=== PATIENT | female | born 1955 | race Caucasian/White ===

== ENCOUNTER 2018-04-20 12:36 | Emergency (ER) | payer OTHER ==
[~2018-04-20] VITALS: Ht 157.5 cm; Wt 63.5 kg
[~2018-04-20 12:36] MED LIST: ACEBUTCAFT PO; ACET325 PO; ALPR.25 PO; BISA10S PR; BUTASPCAFT PO; CEPH500 PO; CHOL10002 PO; CIPR250 PO; CODACE30 PO; DIVA125EC PO; DIVA250EC; DIVA250EC PO; DIVA500EC PO; DOCU100 PO; EPIN.3I IM; Esgic Tablet1 EACH PO; FIORICET 50-301 EACH; FOLI1; FOLI1 PO; GAVILAX17 GM PO; HYDR1TAB94 PO; Inderal 20 mg T20 MG; LACO50TA2 PO; LAVAP17G PO; LEVE500 PO; LEVFLO250 PO; LEVFLO500 PO; LORA1 PO; Levetiracetam1000 MG PO; Micro-K10 MEQ PO; Milk Of Ma400 MG/5 M PO; Milk Of Ma800 MG/5 M PO; NITR100 PO; ONDA4ODT; ONDA4ODT MM; ONDA4ODT PO; PANT40 PO; POTA10T; POTA20LUD PO; POTCHL10ER PO; POTCHL20ER PO; PRAV20; PROM25; PROM25 PO; PROM25S PO; PROP10 PO; Protonix40 MG PO; Pyridium100 MG; QUET25 PO; SPIR25 PO; SUCR1; Seroquel50 MG PO; TRAM50; TRAZ50 PO; TRAZODONE; Vimpat200 MG; Zofran8 MG PO; [UNRECOGNIZED DRUG - OTHER] PO
[2018-04-20] MEDS ORDERED: TRAZ50 PO (14:00)
[2018-04-20] MEDS ORDERED: Nitrofurantoin50 MG PO (14:04)
[2018-04-20] MEDS ORDERED: ATOR40TA PO (14:05)
[2018-04-20] MEDS ORDERED: ACET325 PO (14:06)
[2018-04-20] MEDS ORDERED: Pyridium100 MG PO (14:08)
[2018-04-20] MEDS ORDERED: SUMA25 PO (14:11)
[2018-04-20] MEDS ORDERED: CAL MAG ZINC +1 EAC1 PO (14:20)
[2018-04-20] MEDS ORDERED: Amoxicillin500 MG PO (16:00)
== END 2018-04-20 16:45 | disposition home or self-care (01) ==
LOC: ER 12:36
DX: S01.511A Laceration without foreign body of lip, initial encounter (principal); S16.1XXA Strain of muscle, fascia and tendon at neck level, initial encounter; S30.0XXA Contusion of lower back and pelvis, initial encounter; S00.83XA Contusion of other part of head, initial encounter; W10.9XXA Fall (on) (from) unspecified stairs and steps, initial encounter; G43.909 Migraine, unspecified, not intractable, without status migrainosus; Z79.899 Other long term (current) drug therapy; Z88.2 Allergy status to sulfonamides; Z88.5 Allergy status to narcotic agent
CPT/HCPCS: 12011; 70450; 72125; 72170; 90471; 90714; 93005; 93010; 96374; 96376; 99284; J3010

== ENCOUNTER → 2018-05-11 | Outpatient (CLI) | payer OTHER ==
[~2018-05-11] MED LIST changes: +ATOR40TA PO; +Amoxicillin500 MG PO; +CAL MAG ZINC +1 EAC1 PO; +Nitrofurantoin50 MG PO; +Pyridium100 MG PO; +SUMA25 PO
[2018-05-11 18:01] LABS: Bilirubin, Urine Neg (Neg); Blood, Urine 1+ (Neg); Glucose Qualitative, Urine Neg (Neg); Ketones, Urine 2+ (Neg); Leukocyte Esterase, Urine 2+ (Neg); Nitrite, Urine Neg (Neg); Protein, Urine Neg (Neg); Specific Gravity, Urine 1.015 (1.003-1.022); Urobilinogen, Urine NORM (Normal); pH, Urine 6.5 (5.0-8.0)
[2018-05-11 18:10] LABS: Appearance, Urine Clear (Clear); Color, Urine Yellow (P-Yellow)
[2018-05-11 18:11] LABS: Bacteria Few /hpf; Squamous Epithelial Cells Few /hpf (Few); White Blood Cells, Urine 25-50 /hpf (0-5)
== END ==
LOC: LAB 17:48 → LAB SHORT 17:48
PROVIDERS: Nurse Practitioner Family
DX: R31.9 Hematuria, unspecified (principal)
CPT/HCPCS: 81001; 87077; 87086; 87186

== ENCOUNTER 2018-06-05 14:25 | Emergency (ER) | payer OTHER ==
[~2018-06-05] VITALS: Ht 157.5 cm; Wt 74.8 kg
[2018-06-05 15:46] LABS: Source, Urine Clean Catch
[2018-06-05 15:51] LABS: BASOPHILS ABSOLUTE AUTO 0.02 K/mm3 (0.00-0.23); BASOPHILS PERCENT AUTO 0 % (0-2); EOSINOPHILS ABSOLUTE AUTO 0.03 K/mm3 (0.00-0.68); EOSINOPHILS PERCENT AUTO 1 % (0-6); Hematocrit 32.7 % (33.0-51.0); Hemoglobin 10.9 g/dL (11.5-16.0); IMMATURE GRAN ABSOLUTE AUTO 0.01 K/mm3 (0.00-0.10); IMMATURE GRAN PERCENT AUTO 0 % (0-1); LYMPHOCYTES ABSOLUTE AUTO 1.46 K/mm3 (0.84-5.20); LYMPHOCYTES PERCENT AUTO 29 % (21-46); MONOCYTES ABSOLUTE AUTO 0.79 K/mm3 (0.16-1.47); MONOCYTES PERCENT AUTO 16 % (4-13); Mean Corpuscular HGB 32.2 pg (26.0-34.0); Mean Corpuscular HGB Conc 33.3 g/dL (31.5-36.5); Mean Corpuscular Volume 97 fL (80-100); Mean Platelet Volume 9.1 fL (9.1-12.4); NEUTROPHILS ABSOLUTE AUTO 2.65 K/mm3 (1.96-9.15); NEUTROPHILS PERCENT AUTO 54 % (41-73); Platelet Count 205 K/mm3 (150-400); RDW Coefficient Variation 13.6 % (11.7-14.2); RDW Standard Deviation 48.9 fL (35.1-46.3); Red Blood Cell Count 3.38 M/mm3 (3.80-5.20); White Blood Cell Count 4.96 K/mm3 (4.00-11.30)
[2018-06-05 15:53] LABS: Bilirubin, Urine Neg (Neg); Blood, Urine 2+ (Neg); Glucose Qualitative, Urine Neg (Neg); Ketones, Urine 3+ (Neg); Leukocyte Esterase, Urine 1+ (Neg); Nitrite, Urine Neg (Neg); Protein, Urine 1+ (Neg); Urobilinogen, Urine NORM (Normal)
[2018-06-05 16:00] LABS: Appearance, Urine Cloudy (Clear); Color, Urine Yellow (P-Yellow)
[2018-06-05 16:01] LABS: Mucus Heavy (0-Heavy)
[2018-06-05 16:03] LABS: Bacteria Rare /hpf; Squamous Epithelial Cells Rare /hpf (Few)
[2018-06-05 16:07] LABS: Alanine Aminotransfer (ALT/SGP 15 U/L (12-78); Albumin, Blood 3.1 g/dL (3.4-5.0); Alk Phos 63 U/L (50-136); Anion Gap 8 mmol/L (6-16); Aspartate Aminotrans (AST/SGOT 14 U/L (12-37); Bilirubin, Total 0.1 mg/dL (0.1-1.0); Blood Urea Nitrogen 32 mg/dL (8-24); Bun/Creatinine Ratio 46.2 (12.0-20.0); CO2, Blood 24 mmol/L (21-32); Calcium, Blood 8.8 mg/dL (8.5-10.1); Chloride, Blood 110 mmol/L (98-108); Creatinine, Blood 0.69 mg/dL (0.40-1.00); Glomerular Filtration Rate >60 (60-); Glucose, Blood 106 mg/dL (70-99); Potassium, Blood 4.3 mmol/L (3.5-5.5); Sodium, Blood 142 mmol/L (136-145); Total Protein, Blood 6.1 g/dL (6.4-8.2)
== END 2018-06-05 16:45 | disposition home or self-care (01) ==
LOC: ER 14:25
PROVIDERS: Emergency Medicine
DX: E86.0 Dehydration (principal); Z79.899 Other long term (current) drug therapy
CPT/HCPCS: 36415; 70450; 71046; 80053; 81001; 85025; 93005; 93010; 99285-25

== ENCOUNTER 2018-07-10 01:44 | Emergency (ER) | payer OTHER ==
[~2018-07-10] VITALS: Ht 162.6 cm; Wt 70.3 kg
== END 2018-07-10 07:51 | disposition home or self-care (01) ==
LOC: ER 01:44
DX: S01.81XA Laceration without foreign body of other part of head, initial encounter (principal); S00.11XA Contusion of right eyelid and periocular area, initial encounter; F03.90 Unspecified dementia, unspecified severity, without behavioral disturbance, psychotic disturbance, mood disturbance, and anxiety; D64.9 Anemia, unspecified; Z88.2 Allergy status to sulfonamides; Z88.5 Allergy status to narcotic agent; Z91.030 Bee allergy status; Z79.899 Other long term (current) drug therapy; W18.30XA Fall on same level, unspecified, initial encounter
CPT/HCPCS: 12011; 70450; 72125; 90714; 99284-25

== ENCOUNTER → 2018-08-15 | Outpatient (CLI) | payer OTHER ==
[~2018-08-15] MED LIST changes: +FOLGARD TABLET1 EACH; +Roxicodone5 MG PO
[2018-08-15 15:20] LABS: Appearance, Urine Clear (Clear); Bilirubin, Urine Neg (Neg); Blood, Urine Neg (Neg); Color, Urine Yellow (P-Yellow); Glucose Qualitative, Urine Neg (Neg); Ketones, Urine 2+ (Neg); Leukocyte Esterase, Urine 2+ (Neg); Nitrite, Urine Neg (Neg); Protein, Urine 2+ (Neg); Urobilinogen, Urine NORM (Normal)
[2018-08-15 15:37] LABS: Squamous Epithelial Cells Few /hpf (Few)
[2018-08-15 15:38] LABS: Bacteria Not Seen /hpf; Red Blood Cells, Urine 0-2 /hpf (0-2); Transitional Epithelial Cells Few /hpf (0-Rare)
== END | disposition home or self-care (01) ==
LOC: LAB 13:15 → LAB SHORT 13:15
PROVIDERS: Nurse Practitioner Family
DX: N39.0 Urinary tract infection, site not specified (principal)
CPT/HCPCS: 81001; 87086

== ENCOUNTER 2019-01-19 19:50 | Emergency (ER) | payer OTHER ==
[~2019-01-19] VITALS: Ht 157.5 cm; Wt 86.2 kg
[2019-01-19 20:28] LABS: BASOPHILS ABSOLUTE AUTO 0.02 K/mm3 (0.00-0.23); BASOPHILS PERCENT AUTO 0 % (0-2); EOSINOPHILS PERCENT AUTO 0 % (0-6); Hematocrit 35.9 % (33.0-51.0); Hemoglobin 11.6 g/dL (11.5-16.0); IMMATURE GRAN ABSOLUTE AUTO 0.02 K/mm3 (0.00-0.10); IMMATURE GRAN PERCENT AUTO 0 % (0-1); LYMPHOCYTES ABSOLUTE AUTO 0.59 K/mm3 (0.84-5.20); LYMPHOCYTES PERCENT AUTO 10 % (21-46); MONOCYTES PERCENT AUTO 19 % (4-13); Mean Corpuscular HGB 31.4 pg (26.0-34.0); Mean Corpuscular HGB Conc 32.3 g/dL (31.5-36.5); Mean Corpuscular Volume 97 fL (80-100); Mean Platelet Volume 9.1 fL (9.1-12.4); NEUTROPHILS ABSOLUTE AUTO 4.17 K/mm3 (1.96-9.15); NEUTROPHILS PERCENT AUTO 71 % (41-73); Platelet Count 206 K/mm3 (150-400); RDW Coefficient Variation 13.4 % (11.7-14.2); RDW Standard Deviation 47.8 fL (35.1-46.3)
[2019-01-19 20:45] LABS: Alanine Aminotransfer (ALT/SGP 16 U/L (12-78); Albumin, Blood 3.3 g/dL (3.4-5.0); Alk Phos 70 U/L (50-136); Anion Gap 6 mmol/L (6-16); Aspartate Aminotrans (AST/SGOT 17 U/L (12-37); Bilirubin, Total 0.2 mg/dL (0.1-1.0); Blood Urea Nitrogen 25 mg/dL (8-24); Bun/Creatinine Ratio 34.3 (12.0-20.0); CO2, Blood 26 mmol/L (21-32); Calcium, Blood 9.1 mg/dL (8.5-10.1); Chloride, Blood 106 mmol/L (98-108); Creatinine, Blood 0.73 mg/dL (0.40-1.00); Globulin, Blood 3.3 g/dL (2.2-4.0); Glomerular Filtration Rate >60 (60-); Glucose, Blood 121 mg/dL (70-99); Potassium, Blood 3.8 mmol/L (3.5-5.5); Sodium, Blood 138 mmol/L (136-145); Total Protein, Blood 6.6 g/dL (6.4-8.2)
[2019-01-19 20:47] LABS: Source, Urine Catheter
[2019-01-19 20:51] LABS: Bilirubin, Urine Neg (Neg); Blood, Urine 2+ (Neg); Glucose Qualitative, Urine Neg (Neg); Ketones, Urine 3+ (Neg); Leukocyte Esterase, Urine 1+ (Neg); Nitrite, Urine Neg (Neg); Protein, Urine 2+ (Neg); Urobilinogen, Urine 1+ (Normal)
[2019-01-19 21:05] LABS: Appearance, Urine Hazy (Clear); Color, Urine Yellow (P-Yellow)
[2019-01-19 21:07] LABS: Amorphous Light (0-Heavy); Bacteria Few /hpf; Mucus Mod (0-Heavy); Red Blood Cells, Urine 0-2 /hpf (0-2); Squamous Epithelial Cells Not Seen /hpf (Few)
[2019-01-19 21:11] LABS: Influenza A Positive (NEGATIVE); Influenza B Negative (NEGATIVE)
[2019-01-19] MEDS ORDERED: CEPH500 PO (21:21)
== END 2019-01-19 23:30 | disposition home or self-care (01) ==
LOC: ER 19:50
PROVIDERS: Emergency Medicine
DX: J10.1 Influenza due to other identified influenza virus with other respiratory manifestations (principal); N39.0 Urinary tract infection, site not specified; F03.90 Unspecified dementia, unspecified severity, without behavioral disturbance, psychotic disturbance, mood disturbance, and anxiety; Z88.2 Allergy status to sulfonamides; Z88.5 Allergy status to narcotic agent; Z91.038 Other insect allergy status; Z79.899 Other long term (current) drug therapy
CPT/HCPCS: 36415; 51701; 71046; 80053; 81001; 85025; 87086; 87804; 96361-59; 96374-59; 99284-25; J0696; J7030

== ENCOUNTER 2019-03-05 11:06 | Emergency (ER) | payer OTHER ==
[~2019-03-05] VITALS: Ht 157.5 cm; Wt 68.0 kg
== END 2019-03-05 14:03 | disposition home or self-care (01) ==
LOC: ER 11:06
DX: M25.552 Pain in left hip (principal); G89.29 Other chronic pain; W05.0XXA Fall from non-moving wheelchair, initial encounter; Z88.2 Allergy status to sulfonamides; Z88.5 Allergy status to narcotic agent; Z91.030 Bee allergy status; Z79.899 Other long term (current) drug therapy; F03.90 Unspecified dementia, unspecified severity, without behavioral disturbance, psychotic disturbance, mood disturbance, and anxiety
CPT/HCPCS: 71045; 73502; 99283-25

== ENCOUNTER → 2019-04-13 | Outpatient (CLI) | payer OTHER | END | disposition home or self-care (01) | LOC: LAB SHORT 13:43 → LAB 13:43 | DX: N39.0 Urinary tract infection, site not specified (principal) | CPT/HCPCS: 87086 ==

== ENCOUNTER 2019-04-25 15:53 | Emergency (ER) | payer OTHER ==
[~2019-04-25] VITALS: Ht 157.5 cm; Wt 54.4 kg
[~2019-04-25 15:53] MED LIST changes: +Keppra750 MG PO
[2019-04-25] MEDS ORDERED: DONE5 PO (18:08)
[2019-04-25] MEDS ORDERED: FURO20 PO (18:10)
[2019-04-25] MEDS ORDERED: MEMA10 PO (18:11)
== END 2019-04-25 20:49 | disposition home or self-care (01) ==
LOC: ER 15:53
DX: M79.89 Other specified soft tissue disorders (principal); F03.90 Unspecified dementia, unspecified severity, without behavioral disturbance, psychotic disturbance, mood disturbance, and anxiety; D64.9 Anemia, unspecified; Z79.899 Other long term (current) drug therapy; Z88.2 Allergy status to sulfonamides; Z91.030 Bee allergy status; Z86.73 Personal history of transient ischemic attack (TIA), and cerebral infarction without residual deficits
CPT/HCPCS: 93971; 99284-25

== ENCOUNTER → 2019-05-15 | Outpatient (CLI) | payer OTHER ==
[~2019-05-15] MED LIST changes: +DONE5 PO; +FURO20 PO; +MEMA10 PO
[2019-05-15 14:22] LABS: Bilirubin, Urine Neg (Neg); Blood, Urine 1+ (Neg); Glucose Qualitative, Urine Neg (Neg); Ketones, Urine Neg (Neg); Leukocyte Esterase, Urine 1+ (Neg); Nitrite, Urine Neg (Neg); Protein, Urine Neg (Neg); Specific Gravity, Urine 1.015 (1.003-1.022); Urobilinogen, Urine NORM (Normal); pH, Urine 6.5 (5.0-8.0)
[2019-05-15 14:48] LABS: Appearance, Urine Clear (Clear); Color, Urine Pale Yellow (P-Yellow)
[2019-05-15 15:15] LABS: Squamous Epithelial Cells Few /hpf (Few)
[2019-05-15 15:17] LABS: Bacteria Few /hpf
== END | disposition home or self-care (01) ==
LOC: LAB SHORT 13:56 → LAB 13:56
PROVIDERS: Family Medicine
DX: N39.0 Urinary tract infection, site not specified (principal)
CPT/HCPCS: 81001; 87086

== ENCOUNTER 2019-09-30 19:33 | Emergency (ER) | payer OTHER ==
[~2019-09-30] VITALS: Ht 154.9 cm; Wt 70.3 kg
[2019-09-30] MEDS ORDERED: CALCITRATE200 MG (19:58)
[2019-09-30] MEDS ORDERED: DIVA500EC PO (19:59)
[2019-09-30] MEDS ORDERED: LACO50TA2 PO (20:01)
[2019-09-30] MEDS ORDERED: BENADRYL25 MG PO (21:21)
== END 2019-09-30 21:50 | disposition home or self-care (01) ==
LOC: ER 19:33
DX: T63.441A Toxic effect of venom of bees, accidental (unintentional), initial encounter (principal); Z86.73 Personal history of transient ischemic attack (TIA), and cerebral infarction without residual deficits; Z87.440 Personal history of urinary (tract) infections; Z88.2 Allergy status to sulfonamides; Z88.5 Allergy status to narcotic agent; Z91.030 Bee allergy status; Z79.899 Other long term (current) drug therapy; Z79.891 Long term (current) use of opiate analgesic
CPT/HCPCS: 93005; 93010; 96374; 96375; 99285-25; J1200; J2405; J2930

== ENCOUNTER → 2020-02-15 | Outpatient (CLI) | payer OTHER ==
[~2020-02-15] MED LIST changes: +BENADRYL25 MG PO; +CALCITRATE200 MG
[2020-02-15 12:33] LABS: Anion Gap 9 mmol/L (6-16); Blood Urea Nitrogen 23 mg/dL (8-24); Bun/Creatinine Ratio 32.2 (12.0-20.0); CO2, Blood 26 mmol/L (21-32); Calcium, Blood 8.6 mg/dL (8.5-10.1); Chloride, Blood 108 mmol/L (98-108); Creatinine, Blood 0.71 mg/dL (0.40-1.00); Glomerular Filtration Rate >60 (60-); Glucose, Blood 109 mg/dL (70-99); Potassium, Blood 3.6 mmol/L (3.5-5.5); Sodium, Blood 143 mmol/L (136-145)
== END | disposition home or self-care (01) ==
LOC: LAB 11:22 → LAB SHORT 11:22
PROVIDERS: Student in an Organized Health Care Education/Training Program
DX: G40.909 Epilepsy, unspecified, not intractable, without status epilepticus (principal)
CPT/HCPCS: 80048

== ENCOUNTER → 2020-04-03 | Outpatient (CLI) | payer OTHER ==
[2020-04-03 11:23] LABS: Bilirubin, Urine Neg (Neg); Blood, Urine Neg (Neg); Glucose Qualitative, Urine Neg (Neg); Ketones, Urine Neg (Neg); Leukocyte Esterase, Urine 3+ (Neg); Nitrite, Urine Neg (Neg); Protein, Urine Neg (Neg); Specific Gravity, Urine 1.015 (1.003-1.022); Urobilinogen, Urine NORM (Normal)
[2020-04-03 12:08] LABS: Appearance, Urine Clear (Clear); Color, Urine Yellow (P-Yellow)
[2020-04-03 12:09] LABS: Bacteria Mod /hpf; Red Blood Cells, Urine 0-2 /hpf (0-2); Squamous Epithelial Cells Few /hpf (Few)
== END | disposition home or self-care (01) ==
LOC: LAB 09:35 → LAB SHORT 09:35
PROVIDERS: Family Medicine
DX: N39.0 Urinary tract infection, site not specified (principal)
CPT/HCPCS: 81001; 87086

== ENCOUNTER → 2020-04-04 | Outpatient (CLI) | payer OTHER ==
[2020-04-04 11:59] LABS: Anion Gap 5 mmol/L (6-16); Blood Urea Nitrogen 21 mg/dL (8-24); Bun/Creatinine Ratio 32.5 (12.0-20.0); CO2, Blood 29 mmol/L (21-32); Calcium, Blood 8.8 mg/dL (8.5-10.1); Chloride, Blood 108 mmol/L (98-108); Creatinine, Blood 0.65 mg/dL (0.40-1.00); Glomerular Filtration Rate >60 (60-); Glucose, Blood 100 mg/dL (70-99); Phosphorus, Blood 3.5 mg/dL (2.5-4.9); Potassium, Blood 3.8 mmol/L (3.5-5.5); Sodium, Blood 142 mmol/L (136-145)
== END | disposition home or self-care (01) ==
LOC: LAB 09:20 → LAB SHORT 09:20
PROVIDERS: Internal Medicine Nephrology
DX: N18.2 Chronic kidney disease, stage 2 (mild) (principal); D63.1 Anemia in chronic kidney disease
CPT/HCPCS: 80069; 85018

== ENCOUNTER → 2020-04-05 | Outpatient (CLI) | payer OTHER ==
[2020-04-05 16:12] LABS: Bilirubin, Urine Neg (Neg); Blood, Urine Neg (Neg); Glucose Qualitative, Urine Neg (Neg); Ketones, Urine Neg (Neg); Leukocyte Esterase, Urine 2+ (Neg); Nitrite, Urine Neg (Neg); Protein, Urine Neg (Neg); Urobilinogen, Urine NORM (Normal)
[2020-04-05 16:18] LABS: Appearance, Urine Clear (Clear); Color, Urine Yellow (P-Yellow)
[2020-04-05 16:20] LABS: Bacteria Mod /hpf; Red Blood Cells, Urine 0-2 /hpf (0-2); Squamous Epithelial Cells Few /hpf (Few)
== END | disposition home or self-care (01) ==
LOC: LAB SHORT 14:05 → LAB 14:05
PROVIDERS: Family Medicine
DX: N39.0 Urinary tract infection, site not specified (principal)
CPT/HCPCS: 81001; 87086

== ENCOUNTER → 2020-04-09 | Outpatient (CLI) | payer OTHER ==
[2020-04-09 13:04] LABS: Source, Urine Clean Catch
[2020-04-09 14:12] LABS: Bilirubin, Urine Neg (Neg); Blood, Urine Neg (Neg); Glucose Qualitative, Urine Neg (Neg); Ketones, Urine Neg (Neg); Leukocyte Esterase, Urine 3+ (Neg); Nitrite, Urine Neg (Neg); Protein, Urine Neg (Neg); Specific Gravity, Urine 1.015 (1.003-1.022); Urobilinogen, Urine NORM (Normal)
[2020-04-09 14:32] LABS: Appearance, Urine Clear (Clear); Bacteria Mod /hpf; Color, Urine Yellow (P-Yellow); Red Blood Cells, Urine 0-2 /hpf (0-2); Squamous Epithelial Cells Few /hpf (Few); Transitional Epithelial Cells Few /hpf (0-Rare)
== END | disposition home or self-care (01) ==
LOC: LAB 13:02 → LAB SHORT 13:02
PROVIDERS: Family Medicine
DX: N39.0 Urinary tract infection, site not specified (principal)
CPT/HCPCS: 81001; 87086

== ENCOUNTER → 2020-08-27 | Outpatient (CLI) | payer OTHER ==
[2020-08-27 19:18] LABS: Source, Urine Clean Catch
[2020-08-27 20:04] LABS: Appearance, Urine Clear (Clear); Bilirubin, Urine Neg (Neg); Blood, Urine Neg (Neg); Color, Urine Yellow (P-Yellow); Glucose Qualitative, Urine Neg (Neg); Ketones, Urine 1+ (Neg); Leukocyte Esterase, Urine 3+ (Neg); Nitrite, Urine Neg (Neg); Protein, Urine Neg (Neg); Specific Gravity, Urine 1.015 (1.003-1.022); Urobilinogen, Urine NORM (Normal); pH, Urine 6.5 (5.0-8.0)
[2020-08-27 20:11] LABS: Bacteria Mod /hpf; Mucus Light (0-Heavy); Red Blood Cells, Urine Not Seen /hpf (0-2); Squamous Epithelial Cells Few /hpf (Few)
== END | disposition home or self-care (01) ==
LOC: LAB 15:17 → LAB SHORT 15:17
PROVIDERS: Nurse Practitioner Family
DX: N39.0 Urinary tract infection, site not specified (principal)
CPT/HCPCS: 81001; 87086

== ENCOUNTER 2020-09-19 10:41 | Emergency (ER) | payer OTHER ==
[~2020-09-19] VITALS: Ht 157.5 cm; Wt 56.2 kg
[2020-09-19] MEDS ORDERED: AMOCLA875 PO (12:12)
== END 2020-09-19 13:03 | disposition home or self-care (01) ==
LOC: ER 10:41
DX: S02.2XXA Fracture of nasal bones, initial encounter for closed fracture (principal); S01.21XA Laceration without foreign body of nose, initial encounter; Z79.899 Other long term (current) drug therapy; W05.0XXA Fall from non-moving wheelchair, initial encounter
CPT/HCPCS: 12011; 36415; 70450; 72125; 99284-25; A9270

== ENCOUNTER 2020-10-07 23:06 | Inpatient (IN) | payer OTHER ==
[~2020-10-07] VITALS: Ht 162.6 cm; Wt 66.8 kg
[~2020-10-07 23:06] MED LIST changes: +AMOCLA875 PO
[2020-10-08 00:21] LABS: PCO2 Arterial 27.8 mmHg (35-45); PO2 Arterial 141 mmHg (80-100); pH Blood Arterial 7.45 (7.35-7.45)
--- NOTE | 2020-10-08 01:29 | NUR ---
6.5 ETT, 24 CM AT TEETH
[2020-10-08] MEDS ORDERED: DIVA250ER PO (01:31)
[2020-10-08] MEDS ORDERED: DOCU100 PO (01:32)
[2020-10-08] MEDS ORDERED: ROWEEPRA PO (01:32)
[2020-10-08] MEDS ORDERED: FURO20 PO (01:32)
[2020-10-08] MEDS ORDERED: MEMA10 PO (01:33)
[2020-10-08] MEDS ORDERED: Vimpat200 MG PO (01:33)
[2020-10-08] MEDS ORDERED: NITROFURANTOIN50 M2 PO (01:33)
[2020-10-08] MEDS ORDERED: DONE5 PO (01:34)
[2020-10-08] MEDS ORDERED: Vitamin D2000 UNIT PO (01:34)
[2020-10-08] MEDS ORDERED: ATORVASTATIN CA40 M1 PO (01:34)
[2020-10-08] MEDS ORDERED: TRAZ50 PO (01:34)
[2020-10-08] MEDS ORDERED: DIVA500ER PO (01:34)
[2020-10-08] MEDS ORDERED: ACETAMINOPHEN PR (01:35)
[2020-10-08] MEDS ORDERED: PANTOPRAZOLE SO40 M2 PO (01:35)
[2020-10-08] MEDS ORDERED: IMITREX50 MG PO (01:36)
[2020-10-08 01:50] LABS: BASOPHILS ABSOLUTE AUTO 0.04 K/mm3 (0.00-0.23); BASOPHILS PERCENT AUTO 0 % (0-2); EOSINOPHILS PERCENT AUTO 0 % (0-6); Hematocrit 45.4 % (33.0-51.0); Hemoglobin 13.7 g/dL (11.5-16.0); IMMATURE GRAN ABSOLUTE AUTO 0.11 K/mm3 (0.00-0.10); IMMATURE GRAN PERCENT AUTO 1 % (0-1); LYMPHOCYTES ABSOLUTE AUTO 2.52 K/mm3 (0.84-5.20); LYMPHOCYTES PERCENT AUTO 20 % (21-46); MONOCYTES ABSOLUTE AUTO 1.75 K/mm3 (0.16-1.47); MONOCYTES PERCENT AUTO 14 % (4-13); Mean Corpuscular HGB 30.9 pg (26.0-34.0); Mean Corpuscular HGB Conc 30.2 g/dL (31.5-36.5); Mean Corpuscular Volume 103 fL (80-100); Mean Platelet Volume 9.8 fL (9.1-12.4); NEUTROPHILS ABSOLUTE AUTO 8.39 K/mm3 (1.96-9.15); NEUTROPHILS PERCENT AUTO 65 % (41-73); NRBC ABSOLUTE 0.13 K/mm3 (0.00-0.02); Platelet Count 279 K/mm3 (150-400); RDW Standard Deviation 53.3 fL (35.1-46.3); Red Blood Cell Count 4.43 M/mm3 (3.80-5.20); White Blood Cell Count 12.81 K/mm3 (4.00-11.30)
[2020-10-08 02:03] LABS: Alanine Aminotransfer (ALT/SGP 31 U/L (12-78); Albumin, Blood 2.4 g/dL (3.4-5.0); Albumin/Globulin Ratio 0.6 (0.8-1.8); Alk Phos 67 U/L (50-136); Anion Gap 8 mmol/L (6-16); Aspartate Aminotrans (AST/SGOT 139 U/L (12-37); Bilirubin, Total 0.5 mg/dL (0.1-1.0); Blood Urea Nitrogen 41 mg/dL (8-24); Bun/Creatinine Ratio 46.5 (12.0-20.0); CO2, Blood 26 mmol/L (21-32); Chloride, Blood 120 mmol/L (98-108); Creatinine, Blood 0.88 mg/dL (0.40-1.00); Globulin, Blood 3.8 g/dL (2.2-4.0); Glomerular Filtration Rate >60 (60-); Glucose, Blood 129 mg/dL (70-99); Potassium, Blood 3.6 mmol/L (3.5-5.5); Sodium, Blood 154 mmol/L (136-145); Total Protein, Blood 6.2 g/dL (6.4-8.2)
[2020-10-08 02:08] LABS: Source, Urine Catheter
[2020-10-08 02:18] LABS: Bilirubin, Urine Neg (Neg); Blood, Urine 2+ (Neg); Glucose Qualitative, Urine Neg (Neg); Ketones, Urine 2+ (Neg); Leukocyte Esterase, Urine Neg (Neg); Nitrite, Urine Neg (Neg); Protein, Urine 1+ (Neg); Urobilinogen, Urine NORM (Normal)
[2020-10-08 02:20] LABS: Appearance, Urine Clear (Clear); Color, Urine Yellow (P-Yellow)
[2020-10-08 02:27] LABS: Bacteria Few /hpf; Hyaline Casts 0-2 /lpf (0-2); Squamous Epithelial Cells Not Seen /hpf (Few)
[2020-10-08 02:55] LABS: Influenza A, PCR Negative (NEGATIVE); Influenza B, PCR Negative (NEGATIVE); Resp Syncytial Virus, PCR Negative (NEGATIVE); SARS-Cov-2 (COVID-19) PCR, MMC Positive (NEGATIVE)
[2020-10-08 05:02] LABS: pH Blood Arterial 7.51 (7.35-7.45)
[2020-10-08 05:03] LABS: PCO2 Arterial 22.7 mmHg (35-45); PO2 Arterial 79.5 mmHg (80-100)
--- NOTE | 2020-10-08 05:17 | NUR ---
HYPOTENSION/TACHYCARDIA PT STARTED ON LEVOPHED DUE TO HYPOTENSION SBP IN THE 60'S, THAN HAD TO GIVE PT LOPRESSOR FOR HEART RATE 150-170'S. PT CAME DOWN TO 90'S ON HEART RATE AFTER 5 MG LOPRESSOR BUT CONT TO HAVE NO SUSTAINED RUNS UP TO 120'S. BP ON LEVOPHED AT 4 MCQ 101/54 MAP 73
--- NOTE | 2020-10-08 06:26 | NUR ---
ADMIT/SHIFT SUMMARY PT ADMITTED TO ICU 09 VIA ER AT 0315. PT ARRIVED VIA GURNEY WITH RN AND RT. PT TRANSFERED TO BED BY STAFF WITH SLIDER SHEET. PT INTUBATED AND ON MECH VENT. VENT SETTINGS AC 18 TV 400 PEEP 5 FIO2 35%. LUNGS COARSE AND DECREASED. RT SUCTIONING RED SECRECTIONS VIA ET TUBE. HEART RATE IRREGULAR 90-170. CALLED AND SPOKE WITH DR LAURENT AT 0354 REGARDING HEART RATE 90-170 NON SUSTAINING. OBTAINED ORDER FOR LOPRESSOR. PT WITH CENTRAL LINE TO RIGHT IJ, DRSG INTACT, SITE CLEAR. IV 20G TO LEFT AC SALINE LOCKED. TREADWELL CATH PATENT DRAINING YELLOW URINE. OG TO LIS. [address] LAURENT REGARDING CONT HEART RATE 90-170 NON SUSTAINING AND HYPOTENSION. RECEIVED ORDER FOR D5 1/2 AT 75 ML/HR AND LEVOPHED. 0504 STARTED LEVOPHED AT 4 MCQQ/MIN FOR SBP IN THE 60'S. 0512 HEART RATE UP TO 170'S AND SUSTAINING, TALKED WITH KHARI CHARGE NURSE. PT MED WITH LOPRESSOR. HEART RATE DOWN TO 90. CALL OUT TO DR LAURENT [address] LAURENT FOR AMIODARONE BOLUS AND GTT. 0600 AMIODARONE BOLUS COMPLETE AND GTT STARTED AT 1 MG/MIN PT RESTING QUIELTY AT THIS TIME. REPORT TO ON COMING NURSE
--- NOTE | 2020-10-08 07:57 | NUR ---
Received report from Rebekah BERGER. Patient intubated and sedated in bed with HOB at 30 degrees. She has 6.5 ET 25cm at lips with settingsAC 18, TV 400, FiO2 30% and PEEP 5.0 and sats 97%.Patient has RIJ in place dressing intact and site WNL's and has Amiodarone at 1 mg/hr, D5 1/2 NS at 75ml/hr, x2 NS TKO, Levophed at 4 mcg/min, and Propofol at 15 mcg/kg/min. Patient has OG that is clamped. She has 16 Fr Temp Powell draining to gravity small amount yellow urine. During oral care patient opened eyes and mouth and minimal withdrawl. She also has 20ga IV to LAC, flushed and SL'd.
--- NOTE | 2020-10-08 10:00 | NUR ---
Dr Riggs in room assessing patient. All meds currently IV through CL. Dr Riggs reduced Levophed to 2 mcg/min. No other vent or gtt changes.
--- NOTE | 2020-10-08 11:51 | NUR ---
Dr Riggs ordered TF Pivot 1.5 goal rate 35 and water flushes Q4 30ml/hr. No changes with vent or gtt settings. Oral care and repositioning done. Levophed remains at 2 mcg/min with systolic 90-100's.
--- NOTE | 2020-10-08 13:45 | NUR ---
Placed Levophed on standby and systolics 90 and MAP's >65. No vent setting changes. Daughter called again and gave update. No neuro changes and responds to painful and loud verbal stimuli.
--- NOTE | 2020-10-08 15:30 | NUR ---
Vent setting changes ordered by Dr Riggs, AC 15m TV 350, FiO2 30, PEEP 5, sats 95%. TF started earlier and no residual as of yet. Levophed back at 2 mcg/min started at 1345 and Amiodarone at 0.5mg/hr at 1245, no other changes.
--- NOTE | 2020-10-08 18:00 | NUR ---
Patient is intubated and sedated. patient has 6.5ET and 25 cm at lips with vents settings AC 15, TV 350, FiO2 30% and PEEP 5.0 and sats 96%. She has OG with Pivot 1.5 infusing at 25 ml/hr and goal of 35ml/hr with 30 ml water flushes Q4. Has cental line RIJ infusing Levophed at 3 mcg/min, Propofol at 15 mcg/kg/min, D5 1/2 NS at 75 ml/hr, NS TKO x2, Amiodarone at 0.5 mg/hr and 18 hrs will be 10/09 0645. Patien has 16 Fr temp Powell draing 500 ml leida colored urine and temp of 97.4. Plan to wean in am and possible extubation.
--- NOTE | 2020-10-08 18:08 | NUR ---
Per admit trigger, I provided prayer for pt. She is currently vented, sedated, and Covid+. No family present. I will remain available.
--- NOTE | 2020-10-08 19:00 | NUR ---
ASSUMED CARE ASSUMED CARE OF PATIENT. REMAINS INTUBATED- AC 15, TV 350, PEEP 5, FIO2 30%. SEDATED WITH PROPOFOL AT 15MCG/KG/MIN. BILATERAL SOFT WRIST RESTRAINTS IN PLACE. LEVOPHED INFUSING @ 3MCG/MIN TO MAINTAIN MAP >65. OG WITH PIVOT 1.5 AT 25CC/HR. TREADWELL PATENT AND DRAINING. AMIODARONE INFUSING AT 0.5MG/MIN. D5 1/2 NS INFUSING AT 75CC/HR PER ORDER. REMAINS IN AIRBORNE/DROPLET ISOLATION FOR COVID. SCATTERED BRUISING NOTED. SEE SHIFT ASSESSMENT FOR FULL ASSESSMENT.
--- NOTE | 2020-10-09 | NUR ---
HYPERGLYCEMIA [facility]- CALL TO DR. BECERRIL AT THIS TIME AND NEW ORDER RECEIVED FOR S/S INSULIN.
[2020-10-09 04:35] LABS: BASOPHILS ABSOLUTE AUTO 0.06 K/mm3 (0.00-0.23); BASOPHILS PERCENT AUTO 1 % (0-2); EOSINOPHILS PERCENT AUTO 0 % (0-6); Hematocrit 39.4 % (33.0-51.0); Hemoglobin 12.3 g/dL (11.5-16.0); IMMATURE GRAN ABSOLUTE AUTO 0.27 K/mm3 (0.00-0.10); IMMATURE GRAN PERCENT AUTO 2 % (0-1); LYMPHOCYTES ABSOLUTE AUTO 1.08 K/mm3 (0.84-5.20); LYMPHOCYTES PERCENT AUTO 9 % (21-46); MONOCYTES ABSOLUTE AUTO 1.46 K/mm3 (0.16-1.47); MONOCYTES PERCENT AUTO 12 % (4-13); Mean Corpuscular HGB 31.1 pg (26.0-34.0); Mean Corpuscular HGB Conc 31.2 g/dL (31.5-36.5); Mean Corpuscular Volume 100 fL (80-100); Mean Platelet Volume 9.4 fL (9.1-12.4); NEUTROPHILS ABSOLUTE AUTO 9.38 K/mm3 (1.96-9.15); NEUTROPHILS PERCENT AUTO 77 % (41-73); NRBC ABSOLUTE 0.12 K/mm3 (0.00-0.02); Platelet Count 295 K/mm3 (150-400); RDW Coefficient Variation 13.8 % (11.7-14.2); RDW Standard Deviation 51.7 fL (35.1-46.3); Red Blood Cell Count 3.95 M/mm3 (3.80-5.20); White Blood Cell Count 12.25 K/mm3 (4.00-11.30)
--- NOTE | 2020-10-09 04:55 | NUR ---
SBT PROPOFOL TITRATED OFF FOR SBT. RT AT BEDSIDE.
[2020-10-09 05:01] LABS: Magnesium, Blood 2.2 mg/dL (1.6-2.4)
[2020-10-09 05:07] LABS: Anion Gap 9 mmol/L (6-16); Blood Urea Nitrogen 32 mg/dL (8-24); Bun/Creatinine Ratio 40.5 (12.0-20.0); CO2, Blood 22 mmol/L (21-32); Chloride, Blood 118 mmol/L (98-108); Creatinine, Blood 0.79 mg/dL (0.40-1.00); Glomerular Filtration Rate >60 (60-); Glucose, Blood 313 mg/dL (70-99); Potassium, Blood 2.1 mmol/L (3.5-5.5); Sodium, Blood 149 mmol/L (136-145)
--- NOTE | 2020-10-09 05:25 | NUR ---
SEDATION SBT COMPLETE- SEE RT DOCUMENTATION. PROPOFOL RESTARTED AT 20MCG/KG/MIN AT THIS TIME. PT OPENED EYES AND SQUEEZED HANDS TO COMMAND. NOT FOLLOWLING ANY OTHER COMMANDS.
[2020-10-09 05:32] LABS: PCO2 Arterial 27.3 mmHg (35-45); PO2 Arterial 87.1 mmHg (80-100); pH Blood Arterial 7.43 (7.35-7.45)
--- NOTE | 2020-10-09 06:29 | NUR ---
SHIFT SUMMARY NO ACUTE CHANGES. REMAINS INTUBATED- AC 15, TV 350, PEEP 5, FIO2 30%. RR 17-25. SX SCANT AMOUNT OF URBINA SPUTUM WITH SOME BLOOD NOTED. BILATERAL SOFT WRIST RESTRAINTS REMAIN IN PLACE. PT OPENED EYES AND SQUEEZED HANDS TO COMMAND WHEN SEDATION DECREASED, BUT NOT FOLLOWING ANY OTHER COMMANDS. LEVOPHED BETWEEN 3-5MCG/MIN DURING SHIFT TO KEEP MAP >65- NOW INFUSING AT 5MCG/MIN. PIVOT 1.5 IMMUNE INFUSING AT GOAL RATE OF 35CC/HR. OG RESIDUAL <10CC. 30CC H20 FLUSH Q4H. TREADWELL PATENT AND WITH GOOD URINE OUTPUT. CBG INCREASED DURING NOC- NEW ORDER FOR S/S INSULIN COVERAGE. D5 1/2 NS OFF THIS AM D/T HYPERGLYCEMIA. KPHOS 30MMOL INFUSING PER ORDER. AMIODARONE CONTINUES @ 0.5MCG/MIN. WILL REPORT TO ONCOMING RN WHEN AVAILABLE.
--- NOTE | 2020-10-09 08:00 | NUR ---
Received report from Georgia BERGER. Patient remains intubated and sedated. She has 6.5 ET and 25 cm at lips with vent setting of AC 15, TV 350, FiO2 30% and PEEP 5.0 and sats 97%.She has RIJ dressing intact and site WNl's and is infusing: Levophed 5 mcg/miin, Amiodarone off per Dr Riggs, NS TKO x2, K phos at 43ml/hr, Propofol 20 mcg/kg/min. She has OG in place with Pivot 1.5 at goal rate 35 ml/hr and 30 ml water flushes Q4. She has 16Fr temp lopez draining to gravity light leida colored urine and uis afebrile. Patient responds to nocious stimuli and positioning. Possibly extubation today after weaning.
--- NOTE | 2020-10-09 10:00 | NUR ---
Dr Riggs by to see patient and plan to extubate. He talked with daughter and patient will go back to her DNR post extubation. Stopped Propofol and tube feedings and flushed lines. VSS, See EMR. Levohed reduced to 3mcg/min and systolic 90's with MAP's >65.
--- NOTE | 2020-10-09 11:40 | NUR ---
Patient extubated and place on 4L O2 via NC and sats mid 90%'s She was able to follow simple commands like squeezing hands prior. Levophed remains at 3 mcg/min. TF stopped and removed prior as well.
--- NOTE | 2020-10-09 13:30 | NUR ---
Patient has been resting. Palliative care set up skype appt with daughter. I set up IPAD on table in front of patient and daughter was able to talk with her for about an hour. VSS, See EMR. Patient remains on 3 mcg/min of Levophed for MAP's >65 and 2l O2 via NC and sats >93%. She remains non verbal and follows simple commands quickly.
[2020-10-09 13:39] LABS: Phosphorus, Blood 3.4 mg/dL (2.5-4.9); Potassium, Blood 2.9 mmol/L (3.5-5.5)
--- NOTE | 2020-10-09 15:01 | NUR ---
Patient has liquid saleem stool and changes linen and gave partial bath. She is on RA and sats90% and >. No other significant chnages.
--- NOTE | 2020-10-09 17:51 | NUR ---
Changed lined after cleaning patient with small amount of brown liquid stool. She has intermitently yelling for help and when entering room and speaking to her she stops until you leave the room. She does not really track and stares outward even when turning her head. She is currently on RA and sats 89-92%. Medicated with fentanyl earlier for stated chest pain. VSS, See EMR. Gave Dr Riggs update and no further needs. He Levophed continues at 2 mcg/min through RIJ and x2 NS TKO.
--- NOTE | 2020-10-09 19:00 | NUR ---
ASSUMED CARE ASSUMED CARE OF PATIENT. AWAKE AND ALERT. FREQUENTLY YELLING OUT "HELP ME" BUT ISN'T ABLE TO COMMUNICATE HER NEEDS BEYOND THAT. FOLLOWS SIMPLE COMMANDS. MOVES ALL EXTREMITIES WEAKLY. APPEARS FEARFUL. OCCASIONALLY TEARY. MONITOR SHOWS NSR, RATE 80-90s. BP STABLE WITH LEVOPHED AT 2MCG/MIN. AFEBRILE. MILD TREMULOUSNESS NOTED. NPO. TREADWELL PATENT AND DRAINING CLEAR YELLOW URINE. RIJ CENTRAL LINE NOTED, DRSG C/D/I. SEE SHIFT ASSESSMENT FOR FULL ASSESSMENT.
[2020-10-10 03:57] LABS: BASOPHILS ABSOLUTE AUTO 0.04 K/mm3 (0.00-0.23); BASOPHILS PERCENT AUTO 0 % (0-2); EOSINOPHILS PERCENT AUTO 0 % (0-6); Hematocrit 36.3 % (33.0-51.0); Hemoglobin 11.9 g/dL (11.5-16.0); IMMATURE GRAN ABSOLUTE AUTO 0.35 K/mm3 (0.00-0.10); IMMATURE GRAN PERCENT AUTO 3 % (0-1); LYMPHOCYTES ABSOLUTE AUTO 2.13 K/mm3 (0.84-5.20); LYMPHOCYTES PERCENT AUTO 17 % (21-46); MONOCYTES ABSOLUTE AUTO 1.44 K/mm3 (0.16-1.47); MONOCYTES PERCENT AUTO 11 % (4-13); Mean Corpuscular HGB 31.5 pg (26.0-34.0); Mean Corpuscular HGB Conc 32.8 g/dL (31.5-36.5); Mean Corpuscular Volume 96 fL (80-100); Mean Platelet Volume 9.7 fL (9.1-12.4); NEUTROPHILS ABSOLUTE AUTO 8.71 K/mm3 (1.96-9.15); NEUTROPHILS PERCENT AUTO 69 % (41-73); NRBC Auto 0.8 /100 WBC (0.0-0.2); Platelet Count 249 K/mm3 (150-400); RDW Coefficient Variation 13.7 % (11.7-14.2); RDW Standard Deviation 48.7 fL (35.1-46.3); Red Blood Cell Count 3.78 M/mm3 (3.80-5.20); White Blood Cell Count 12.67 K/mm3 (4.00-11.30)
[2020-10-10 04:12] LABS: Anion Gap 7 mmol/L (6-16); Blood Urea Nitrogen 32 mg/dL (8-24); Bun/Creatinine Ratio 42.3 (12.0-20.0); CO2, Blood 25 mmol/L (21-32); Calcium, Blood 8.3 mg/dL (8.5-10.1); Chloride, Blood 117 mmol/L (98-108); Creatinine, Blood 0.76 mg/dL (0.40-1.00); Glomerular Filtration Rate >60 (60-); Glucose, Blood 99 mg/dL (70-99); Magnesium, Blood 1.8 mg/dL (1.6-2.4); Phosphorus, Blood 3.1 mg/dL (2.5-4.9); Sodium, Blood 149 mmol/L (136-145)
--- NOTE | 2020-10-10 06:38 | NUR ---
SHIFT SUMMARY NO ACUTE CHANGES. REMAINS ON RA WITH SATS >90%. RESPIRATIONS OCCASIONALLY TACHYPNEIC WITH AGITATION. PT CONTINUES TO BE TEARFUL AND APPEARS FEARFUL AT TIMES. NEW ONSET OF MOIST COUGH THIS AM PRODUCTIVE OF THICK URBINA SPUTUM. PT HAS DIFFICULTY BRINGING SPUTUM UP. LEVOPHED CONTINUED AT 2MCG/MIN T/O SHIFT TO MAINTAIN MAP >65. NPO. TREADWELL PATENT AND DRAINING WITHOUT DIFFICULTY. PAS TO BLE. KCL AND MAGNESIUM IV REPLACEMENT PER ELECTROLYTE PROTOCOL. WILL REPORT TO ONCOMING RN WHEN AVAILABLE.
--- NOTE | 2020-10-10 07:05 | NUR ---
ASSUMED CARE: RECEIVED REPORT FROM NOC RN. PT IN ISOLATION FOR BEING COVID-19 POSITIVE SO REPORT WAS DONE OUTSIDE OF ROOM. PT APPEARS TO HAVE FACIAL BRUISING AND LOOKS AT THIS RN UPON LOOKING IN THE ROOM, PT DID NOT WAVE BACK TO RN AND APPEARS FEARFULL. NOC RN STATES PT HAS APPEARED THIS WAY DURING THE ENTIRE NOC SHIFT. PT VITALS APPERA STABLE AT THIS TIME. WILL REASSESS NEED FOR LEVOPHED DURING PT ASSESSMENT. NO ACUTE S/S OF DISTRESS AT THIS TIME. WILL CONTINUE TO MONIOTR AND ASSESS FURTHER.
[2020-10-10] MEDS ORDERED: CALCIUM 600 +1 EA11 PO (08:09)
[2020-10-10] MEDS ORDERED: CRANBERRY500 MG PO (08:10)
--- NOTE | 2020-10-10 12:08 | NUR ---
DAUGHTER: TALKED TO THE DAUGHTER TONI AND GAVE UPDATE. DISCUSSED THE POLST ON FILE STATING LIMITED TREATMENT AND DAUGHTER WAS STATING WHEN SHE WAS TALKING TO THE PT TELLING HER IT IS OK FOR HER TO JUST GO TO SLEEP AND BE WITH HER GRANDMA WHO PREVIOUSLY. ASKED THE DAUGHTER IF SHE WANTS TO CHANGE THE POLST TO COMFORT MEASURES ONLY WITH THIS NEW INFORMATION STATED. DAUGHTER STATES SHE WOULD LIKE TO CHANGE HER TO COMFORT MEASURES ONLY. THIS RN ATTEMPTED TO CONTACT [facility], BUT [facility]ARE IS NOT ON TODAY. TOLD THE DAUGHTER THIS RN WOULD HAVE EITHER PALAT[facility]ARE RN AND/OR ONE OF THE PATIENTS DOCTORS CONTACT HER TO GO OVER ALL THE DETAILS TO INSURE COMFORT CARE IS FULLY UNDERSTOOD BEFORE MAKING THAT CHANGE. THIS RN CALLED AND NOTIFIED DR CAGE OF THE SITUATION.
--- NOTE | 2020-10-10 13:30 | NUR ---
COMFORT CARE: DR CAGE CAME TO ASSESS PT FURTHER TO PANCHITO PT IS UNABLE TO MAKE DECISIONS FOR HERSELF. DR CAGE CALLED AND TALKED TO THE DAUGHTER AND ALL CAME TO THE DECISION TO PLACE PT ON COMFORT CARE. NEW ORDERS HAVE BEEN PLACED IN THE PT CHART. WILL CONTINUE TO MONIOTOR.
--- NOTE | 2020-10-10 15:02 | NUR ---
COMFORT CARE: ATTEMPTED TO SEE IF PT COULD EAT, SHE APPEARS TO WANT FOOD, BUT IS UNABLE TO GO THROUGH THE MOTIONS OF CHEWING OR SWALLOWING. DISCONTINUED FOOD AT THIS TIME AND REVERTED PT BACK TO NPO. ATTEMPTED TO CALL TO GIVE REPORT TO MEDICAL FLOOR RN, BUT UNAVAILABLE. AWAITING FOR PT TO BE TRANSFERED TO [phone]
--- NOTE | 2020-10-10 16:07 | NUR ---
NEW ROOM ASSIGNMENT: REPORT GIVEN TO MED RN PREVIOUSLY, BUT PT IS NOW GOING TO ROOM 313. AWAITING ROOM TO BE EMPTIED AND CLEANED.
--- NOTE | 2020-10-10 17:40 | NUR ---
SHIFT SUMMARY PATIENT UP TO THE FLOOR LATE THIS AFTERNOON. PATIENT ALERT ONLY TO SELF. PATIENT WITHOUT SIGNIFICANT VERBAL RESPONSE. PATIENT MADE COMFORTABLE UPON ARRIVAL. ATIVAN ADMINISTERED FOR AGITATION. PATIENT CURRENTLY LAYING IN BED.
--- NOTE | 2020-10-11 06:31 | NUR ---
SHIFT SUMMARY PATIENT ALERT BUT MOSTLY NONVERBAL. SHE IS ABLE TO SAY THAT SHE IS IN PAIN IF ASKED DIRECTLY. PATIENT MEDICATED TWICE FOR PAIN PER EMAR. PATIENT'S IJ LINE IS PATENT AND INFUSING WITH NORMAL SALINE AT A TKO RATE. BED IN LOWEST POSITION IWTH WHEELS LOCKED AND ALARM ON. CALL LIGHT WITHIN REACH. REPORT GIVEN TO ONCOMING RN.
[2020-10-11] MEDS ORDERED: ATROPINE SULFATE2 M3 SL (13:42)
[2020-10-11] MEDS ORDERED: MORP20L SL (13:43)
[2020-10-11] MEDS ORDERED: TRANSDERM-SCOP1 EAC1 TOP (13:43)
--- NOTE | 2020-10-11 15:42 | NUR ---
DISCHARGE SUMMARY PATIENT DISCHARGED TO [facility]. PATIENT DISCHARGED ON HOSPICE. PATIENT'S DAUGHTER AND PATIENT'S MOTHER NOTIFIED OF DISCHARGE. PATIENT ALERT TO SELF AND ANSWERING YES AND NO QUESTIONS, INTERACTING WITH STAFF PRIOR TO DISCHARGE. PATIENT MEDICATED FOR PAIN 3X THIS SHIFT. PATIENT ABLE TO FOLLOW SIMPLE DIRECTIONS AND PROVIDE MINOR HELP WITH CARE. PATIENT ATE APPROXIMATELY 25% OF HER LUNCH WITH ASSISTANCE AND DOES WELL WITH HONEY THICKENED LIQUIDS. PATIENT ON ROOM AIR. REPORT CALLED TO [facility]. PATIENT TRANSPORTED BY [facility].
== END 2020-10-11 15:38 | DRG 208 ==
LOC: ER 23:06 → ICUW 10-08 01:43 → MEDS 10-10 14:35 → ICUW 10-10 15:15 → MEDS 10-10 16:53
PROVIDERS: Emergency Medicine; Internal Medicine Critical Care Medicine; ADMIT Internal Medicine
PROC: 0BH17EZ Insertion of Endotracheal Airway into Trachea, Via Natural or Artificial Opening (ICD-10-PCS; principal; 2020-10-08)
PROC: 5A1945Z Respiratory Ventilation, 24-96 Consecutive Hours (ICD-10-PCS; 2020-10-08)
PROC: 3E0333Z Introduction of Anti-inflammatory into Peripheral Vein, Percutaneous Approach (ICD-10-PCS; 2020-10-08)
PROC: XW033E5 Introduction of Remdesivir Anti-infective into Peripheral Vein, Percutaneous Approach, New Technology Group 5 (ICD-10-PCS; 2020-10-08)
DX: U07.1 COVID-19 (principal); J96.01 Acute respiratory failure with hypoxia; F03.90 Unspecified dementia, unspecified severity, without behavioral disturbance, psychotic disturbance, mood disturbance, and anxiety; I10 Essential (primary) hypertension; Z51.5 Encounter for palliative care; E83.51 Hypocalcemia; Z66 Do not resuscitate; E87.6 Hypokalemia; G20 Parkinson's disease; G40.909 Epilepsy, unspecified, not intractable, without status epilepticus; I48.0 Paroxysmal atrial fibrillation; S00.83XA Contusion of other part of head, initial encounter; Z91.81 History of falling; Z86.73 Personal history of transient ischemic attack (TIA), and cerebral infarction without residual deficits; R13.10 Dysphagia, unspecified; Z87.440 Personal history of urinary (tract) infections
CPT/HCPCS: 0241U; 31500; 31720; 36556; 36600; 51702; 70450; 70486; 71045; 80048; 80053; 81001; 82330; 82803; 82947; 83735; 84100; 84132; 84145; 85025; 87070; 87077; 87147; 87186; 87205; 93005; 93010; 94002; 94003; 96365-59; 96375-59; 99285-25; A9270-GY; C1751; C9113; J0282; J0696; J1100; J1650; J1953; J2060; J2250; J2704; J3010; J3475; J3480; J7030; J7042; J7050; J7060; J7120